=== PATIENT | male | born 1960 | race Caucasian/White ===

== ENCOUNTER 2019-11-04 00:59 | Inpatient (IN) | payer BC ==
[~2019-11-04] VITALS: Ht 170.2 cm; Wt 76.3 kg
[2019-11-04 01:09] VITALS: Ht 170.2 cm; Wt 76.3 kg
[2019-11-04 02:54] LABS: BASOPHIL % 0.4 % (0-2); PLATELET COUNT 153 x10^3mcL (130-400); RED CELL DISTRIBUTION WIDTH 13.8 % (11.5-14.5)
[2019-11-04 03:17] LABS: ALBUMIN 3.8 g/dL (3.4-5.0); ALKALINE PHOSPHATASE 89 U/L (46-116); ALT/SGPT 37 U/L (16-63); AST/SGOT 22 U/L (15-37); BILIRUBIN TOTAL 0.41 mg/dL (0.20-1.00); CALCIUM 8.7 mg/dL (8.5-10.1); CARBON DIOXIDE 30.2 mmol/L (21-32); CHLORIDE SERUM 104 mmol/L (98-107); CREATININE SERUM 1.1 mg/dL (0.7-1.3); GFR1 > 60 mL/min; GLUCOSE SERUM 132 mg/dL (74-106); POTASSIUM SERUM 3.6 mmol/L (3.5-5.1); SODIUM SERUM 142 mmol/L (136-145); TOTAL PROTEIN, SERUM 7.2 g/dL (6.4-8.2)
[2019-11-04 12:39] VITALS: BP 126/63
[2019-11-04 12:56] VITALS: BP 106/57
[2019-11-04 17:24] VITALS: BP 98/53
[2019-11-04 20:20] VITALS: BP 100/49
[2019-11-04 22:50] VITALS: BP 110/60
[2019-11-05 05:47] VITALS: BP 101/56
[2019-11-05 06:38] LABS: BASOPHIL % 0.2 % (0-2); RED CELL DISTRIBUTION WIDTH 13.7 % (11.5-14.5)
[2019-11-05 07:04] LABS: CALCIUM 8.1 mg/dL (8.5-10.1); CARBON DIOXIDE 27.9 mmol/L (21-32); CHLORIDE SERUM 106 mmol/L (98-107); CREATININE SERUM 0.8 mg/dL (0.7-1.3); GFR1 > 60 mL/min; GLUCOSE SERUM 153 mg/dL (74-106); PLATELET COUNT 123 x10^3mcL (130-400); POTASSIUM SERUM 4.1 mmol/L (3.5-5.1); SODIUM SERUM 137 mmol/L (136-145)
[2019-11-05 08:29] VITALS: BP 100/48
[2019-11-05 12:01] VITALS: BP 98/54
[2019-11-05 15:40] VITALS: BP 120/59
[2019-11-05 21:20] VITALS: BP 103/52
[2019-11-06 05:37] VITALS: BP 104/57
[2019-11-06 08:30] VITALS: BP 117/59
[2019-11-06] MEDS ORDERED: CIPRO500 MG PO (15:55)
[2019-11-06 16:16] VITALS: BP 112/61
== END 2019-11-06 18:14 | disposition home or self-care (01) | DRG 343 ==
LOC: ED 00:59 → DU 05:18
PROVIDERS: Emergency Medicine; Surgery; ADMIT Internal Medicine; ATTEND Internal Medicine
PROC: 0DTJ4ZZ Resection of Appendix, Percutaneous Endoscopic Approach (ICD-10-PCS; principal; 2019-11-04 10:00)
DX: K35.80 Unspecified acute appendicitis (principal); E78.5 Hyperlipidemia, unspecified; Z20.828 Contact with and (suspected) exposure to other viral communicable diseases; R00.1 Bradycardia, unspecified
CPT/HCPCS: G0378; J0330; J0696; J1170; J2270; J2405; J2704; J2710; J3010; J3480; J3490; J7060; J7120